=== PATIENT | male | born 1950 | race African-American/Black ===

== ENCOUNTER → 2019-06-20 | Outpatient (CLI) | payer OTHER ==
[~2019-06-20] MED LIST: IOHEXOL 300 MG/ML 75 ML VIAL. IV ONE
[2019-06-20 09:57] LABS: CREATININE 1.2 mg/dL (0.7-1.3); GFR 73.3
--- NOTE | 2019-06-20 17:13 | RAD ---
CT study of the abdomen and pelvis with contrast Clinical indications: Prostate cancer. TECHNIQUE: After IV infusion of 75 cc of Omnipaque 300, helical CT scanning of the abdomen and pelvis was performed. No GI contrast was administered. This may decrease the sensitivity to detect GI tract pathology. PQRS compliance Statement One or more of the following individualized dose reduction techniques were utilized for this study: 1. Automated exposure control 2. Adjustment of the mA and/or kV according to patient size 3. Use of iterative reconstruction technique COMPARISON: None available. FINDINGS: The liver and spleen and pancreas and gallbladder are normal. No extra hepatic biliary ductal dilatation is seen. No adrenal mass is evident. Both kidneys are normal and no hydronephrosis or hydroureter is seen. Urinary bladder wall is smooth. Prostate gland is enlarged and indents the floor of the urinary bladder and measures 6 cm transversely. The seminal vesicles are symmetric. No lateral soft tissue extension of the lateral pelvic sidewall is seen extending from the prostate gland. No focal aneurysmal dilatation of the abdominal aorta is seen. No enlarged abdominal or pelvic lymphadenopathy is evident. The appendix is normal. No obstructive bowel pattern is evident. No free air or free fluid or mesenteric edema is seen. No consolidative lung base infiltrate is seen. No lytic or osteosclerotic process is evident. Grade 1 anterolisthesis of L4-5 is seen. IMPRESSION: No acute abnormality of the abdomen or pelvis. Enlarged prostate gland. No enlarged abdominal or pelvic lymphadenopathy is evident. Electronically signed by: Alvaro Mckeon MD (06/20/2019 5:10 PM) [facility]
--- NOTE | 2019-06-20 17:22 | RAD ---
Whole body bone scan Clinical indications: Prostate cancer. TECHNIQUE: After IV infusion of 25 mCi of technetium 99m MDP, anterior and posterior planar images of the whole body were performed. FINDINGS: Decreased visualization of both kidneys is seen. There is diffuse osseous uptake involving the axial skeleton including the sternum and rib cage bilaterally and the cervical, horacic and lumbar spine and the pelvic bones. This may represent a SuperScan which may be seen with diffuse osseous metastatic disease. However, no lytic or osteoblastic process is seen within the lumbar spine or lower thoracic spine or the lower rib cage or within the pelvic bones by CT study of the abdomen and pelvis performed today as well. Correlation with PSA is recommended. There is soft tissue uptake involving the left lower leg. This may be seen with trauma such as myositis ossificans. Clinical correlation is recommended. IMPRESSION: Possible SuperScan indicative of diffuse osseous metastatic disease. However, no osteolytic or osteoblastic process is seen within the lumbar spine or lower thoracic spine or the lower rib cage on either side or the pelvic bones on the CT study of the abdomen and pelvis performed today. Therefore, correlation with PSA is recommended. If PSA is significantly elevated along with elevated alkaline phosphatase and serum calcium levels, then osseous metastatic disease is possible. If these values are normal, then the scan appearance may be seen with an athletic individual or with a patient that has an elevated vitamin D level. Soft tissue uptake within the left lower leg. This may be seen with trauma such as myositis ossificans. Clinical correlation is recommended. Electronically signed by: Alvaro Mckeon MD (06/20/2019 5:19 PM) [facility]
== END | disposition home or self-care (01) ==
LOC: NM 08:48
PROVIDERS: ATTEND Urology
DX: C61 Malignant neoplasm of prostate (principal); N40.0 Benign prostatic hyperplasia without lower urinary tract symptoms; J44.9 Chronic obstructive pulmonary disease, unspecified; I10 Essential (primary) hypertension
CPT/HCPCS: 36415; 74177; 78306; 82565; A9503; Q9967

== ENCOUNTER → 2019-08-24 | Outpatient (CLI) | payer MEDICARE, OTHER ==
--- NOTE | 2019-08-24 19:30 | RAD ---
CHEST PA LATERAL, KUB History: Malignant neoplasm of the prostate Comparison: CT abdomen and pelvis with contrast 06/20/2019. Findings: Frontal and lateral views of chest were obtained. The cardiomediastinal silhouette is normal. Pulmonary vasculature is normal. The lungs are clear. No pleural effusion or pneumothorax is seen. There is no acute bone abnormality. KUB frontal views of the abdomen were obtained. Bowel gas pattern is normal. Pelvic calcifications probably represent phleboliths. No obstruction. Visualized bony structures are unremarkable with no sclerotic findings to suggest osteoblastic metastatic disease. IMPRESSION: No acute cardiopulmonary process. No bowel obstruction. Electronically signed by: Kevin Shahid MD (08/24/2019 7:27 PM) [id number]
== END | disposition home or self-care (01) ==
LOC: DXRAD 13:09
PROVIDERS: ATTEND Urology
DX: C61 Malignant neoplasm of prostate (principal)
CPT/HCPCS: 71046; 74018

== ENCOUNTER → 2019-11-07 | Outpatient (CLI) | payer MEDICARE, OTHER | END | disposition home or self-care (01) | LOC: LAB 14:55 | PROVIDERS: ATTEND Urology | DX: Z11.59 Encounter for screening for other viral diseases (principal); C61 Malignant neoplasm of prostate | CPT/HCPCS: 87635 ==